=== PATIENT | female | born 1960 | race Asian ===

== ENCOUNTER 2020-03-31 13:53 | Inpatient (IN) | payer OTHER ==
[~2020-03-31] VITALS: Ht 152.4 cm; Wt 61.7 kg
[~2020-03-31 13:53] MED LIST: AMLO-258 GT; ASPI-1450 PO; ATOR40TA28 PO; CLOP75TA60 PO; DSSL GT; INSLAN SQ; INSU100V3 SQ; LEVO50 PO; LISI-893 GT; MULT-1239 GT; PROZ10 PO; SITA50 PO; TAMS-13 GT
[2020-03-31 17:00] VITALS: BP 168/66
[2020-03-31] MEDS ORDERED: DEXTROSE 50%-WATER 25 GM/50 ML SYRINGE IVP PRN (17:30)
[2020-03-31] MEDS ORDERED: ACETAMINOPHEN 325 MG TABLET PO PRN (18:15)
[2020-03-31 18:59] LABS: GLUCOMETER DEV NAME(LOC) 2WR.2B; GLUCOSE,POINT OF CARE 88 MG/DL (70-110)
[2020-03-31] MEDS ORDERED: ATORVASTATIN CALCIUM 40 MG TABLET PO SCH (21:00)
[2020-03-31] MEDS ORDERED: DOCUSATE SODIUM 100 MG/10 ML LIQUID UDCUP PO SCH (21:00)
[2020-03-31] MEDS ORDERED: DOCUSATE SODIUM 100 MG/10 ML LIQUID UDCUP GT SCH (21:00)
[2020-03-31] MEDS: DOCUSATE SODIUM 100 MG/10 ML LIQUID UDCUP GT SCH (21:01)
[2020-03-31] MEDS: LANSOPRAZOLE 30 MG SOLUBLE TABLET GT SCH (21:01)
[2020-03-31] MEDS: ATORVASTATIN CALCIUM 40 MG TABLET GT SCH (21:01)
[2020-03-31] MEDS: INSULIN GLARGINE,HUM.REC.ANLOG 100 UNITS/ML SQ SCH (21:03)
[2020-03-31] MEDS: INSULIN LISPRO 100 UNITS/ML SQ PRN (21:04)
[2020-03-31 21:53] LABS: GLUCOMETER DEV NAME(LOC) 2WR.2B; GLUCOSE,POINT OF CARE 170 MG/DL (70-110)
[2020-04-01 03:48] VITALS: BP 147/62
[2020-04-01] MEDS: LEVOTHYROXINE SODIUM 50 MCG TABLET GT SCH (05:41)
[2020-04-01 05:58] LABS: GLUCOMETER DEV NAME(LOC) 2WR.2B; GLUCOSE,POINT OF CARE 108 MG/DL (70-110)
[2020-04-01 06:56] LABS: BASOPHILS % (AUTO) 0.3 % (0.0-2.0); EOSINOPHILS % (AUTO) 6.7 % (1.0-6.0); HEMATOCRIT 27.3 % (36-46); LYMPHOCYTES # (AUTO) 1.1 K/uL (1.0-4.8); LYMPHOCYTES % (AUTO) 11.5 % (22.0-44.0); MEAN CORPUSCULAR HEMOGLOBIN 27.7 pg (26.0-34.0); MEAN CORPUSCULAR HGB CONC 32.9 G/dL (31.0-37.0); MEAN CORPUSCULAR VOLUME 84 fL (80-100); MONOCYTES # (AUTO) 0.6 K/uL (0.1-1.0); MONOCYTES % (AUTO) 6.2 % (2.0-9.0); NEUTROPHILS # (AUTO) 7.2 K/uL (1.8-7.7); NEUTROPHILS % (AUTO) 75.3 % (40.0-70.0); PLATELET COUNT (AUTO) 268 K/uL (150-450); RED BLOOD CELL COUNT(AUTO) 3.24 MIL/uL (4.00-5.20); RED CELL DISTRIBUTION WIDTH 14.9 % (11.5-14.5)
[2020-04-01] MEDS ORDERED: LEVOTHYROXINE SODIUM 50 MCG TABLET PO SCH (07:00)
[2020-04-01 07:05] LABS: BILIRUBIN,TOTAL 0.2 mg/dL (0.1-1.0); CALCIUM, TOTAL 8.8 mg/dL (8.8-10.5); CREATININE 0.97 mg/dL (0.60-1.30); POTASSIUM 3.9 mmol/L (3.5-5.1); TOTAL PROTEIN, SERUM 5.9 g/dL (6.4-8.2)
[2020-04-01 07:45] VITALS: BP 179/87
[2020-04-01] MEDS ORDERED: CHOLECALCIFEROL (VIT D3) 400 UNITS [10 MCG] TABLET PO SCH (09:00)
[2020-04-01] MEDS: DOCUSATE SODIUM 100 MG/10 ML LIQUID UDCUP GT SCH ×2 (09:00→20:12)
[2020-04-01] MEDS ORDERED: SitaGLIPtin PHOSPHATE 50 MG TABLET PO SCH (09:00)
[2020-04-01] MEDS ORDERED: CALCIUM CARBONATE 648 MG TABLET PO SCH (09:00)
[2020-04-01] MEDS ORDERED: CALCIUM OYSTER SHELL 250 MG-VIT D3 125 UNITS TABLET GT SCH (09:00)
[2020-04-01] MEDS ORDERED: FLUoxetine HCL 10 MG CAPSULE PO SCH (09:00)
[2020-04-01] MEDS ORDERED: AmLODIPine BESYLATE 2.5 MG TABLET PO SCH (09:00)
[2020-04-01] MEDS ORDERED: AmLODIPine BESYLATE 2.5 MG TABLET GT SCH (09:00)
[2020-04-01] MEDS ORDERED: CLOPIDOGREL BISULFATE 75 MG TABLET PO SCH (09:00)
[2020-04-01] MEDS ORDERED: ASPIRIN 81 MG CHEWABLE TABLET PO SCH (09:00)
[2020-04-01 10:26] VITALS: BP 162/60
[2020-04-01] MEDS: INSULIN LISPRO 100 UNITS/ML SQ PRN (10:34)
[2020-04-01] MEDS: SitaGLIPtin PHOSPHATE 50 MG TABLET GT SCH (11:18)
[2020-04-01] MEDS: CALCIUM CARBONATE 648 MG TABLET GT SCH (11:18)
[2020-04-01] MEDS: LANSOPRAZOLE 30 MG SOLUBLE TABLET GT SCH ×2 (11:19→20:12)
[2020-04-01] MEDS: CHOLECALCIFEROL (VIT D3) 400 UNITS [10 MCG] TABLET GT SCH (11:19)
[2020-04-01] MEDS: ASPIRIN 81 MG CHEWABLE TABLET GT SCH (11:19)
[2020-04-01] MEDS: FLUoxetine HCL 10 MG CAPSULE GT SCH (11:19)
[2020-04-01] MEDS: CLOPIDOGREL BISULFATE 75 MG TABLET GT SCH (11:20)
[2020-04-01 13:30] VITALS: BP 156/51
[2020-04-01 13:47] LABS: GLUCOMETER DEV NAME(LOC) 2WR.1C; GLUCOSE,POINT OF CARE 166 MG/DL (70-110)
[2020-04-01] MEDS: LOSARTAN POTASSIUM 25 MG TABLET PO SCH (13:50)
[2020-04-01 16:00] VITALS: BP 135/65
[2020-04-01 17:11] LABS: GLUCOMETER DEV NAME(LOC) 2WR.2B; GLUCOSE,POINT OF CARE 107 MG/DL (70-110)
[2020-04-01] MEDS: ATORVASTATIN CALCIUM 40 MG TABLET GT SCH (20:13)
[2020-04-01] MEDS: INSULIN GLARGINE,HUM.REC.ANLOG 100 UNITS/ML SQ SCH (20:19)
[2020-04-01 21:30] LABS: GLUCOMETER DEV NAME(LOC) 2WR.2B; GLUCOSE,POINT OF CARE 130 MG/DL (70-110)
[2020-04-02] VITALS: BP 143/60
[2020-04-02] MEDS: LEVOTHYROXINE SODIUM 50 MCG TABLET GT SCH (05:15)
[2020-04-02] MEDS: ACETAMINOPHEN 325 MG TABLET GT PRN ×2 (05:22→22:30)
[2020-04-02 05:38] LABS: GLUCOMETER DEV NAME(LOC) 2WR.2B; GLUCOSE,POINT OF CARE 102 MG/DL (70-110)
[2020-04-02 06:58] LABS: CALCIUM, TOTAL 8.7 mg/dL (8.8-10.5); CREATININE 0.97 mg/dL (0.60-1.30); POTASSIUM 3.6 mmol/L (3.5-5.1)
[2020-04-02 08:09] VITALS: BP 147/63
[2020-04-02] MEDS: SitaGLIPtin PHOSPHATE 50 MG TABLET GT SCH (08:20)
[2020-04-02] MEDS: CLOPIDOGREL BISULFATE 75 MG TABLET GT SCH (08:20)
[2020-04-02] MEDS: ASPIRIN 81 MG CHEWABLE TABLET GT SCH (08:20)
[2020-04-02] MEDS: CHOLECALCIFEROL (VIT D3) 400 UNITS [10 MCG] TABLET GT SCH (08:20)
[2020-04-02] MEDS: LANSOPRAZOLE 30 MG SOLUBLE TABLET GT SCH ×2 (08:21→20:04)
[2020-04-02] MEDS: FLUoxetine HCL 10 MG CAPSULE GT SCH (08:21)
[2020-04-02] MEDS: AmLODIPine BESYLATE 5 MG TABLET GT SCH (08:28)
[2020-04-02] MEDS: LOSARTAN POTASSIUM 25 MG TABLET PO SCH (08:28)
[2020-04-02] MEDS: DOCUSATE SODIUM 100 MG/10 ML LIQUID UDCUP GT SCH ×2 (08:31→20:04)
[2020-04-02] MEDS: CALCIUM CARBONATE 648 MG TABLET GT SCH (09:34)
[2020-04-02] MEDS: INSULIN LISPRO 100 UNITS/ML SQ PRN (12:28)
[2020-04-02 15:15] LABS: GLUCOMETER DEV NAME(LOC) 2WR.1C; GLUCOSE,POINT OF CARE 148 MG/DL (70-110)
[2020-04-02 17:13] VITALS: BP 168/69
[2020-04-02 17:27] LABS: GLUCOMETER DEV NAME(LOC) 2WR.2B; GLUCOSE,POINT OF CARE 111 MG/DL (70-110)
[2020-04-02] MEDS: ATORVASTATIN CALCIUM 40 MG TABLET GT SCH (20:04)
[2020-04-02] MEDS: INSULIN GLARGINE,HUM.REC.ANLOG 100 UNITS/ML SQ SCH (20:12)
[2020-04-02 21:41] LABS: GLUCOMETER DEV NAME(LOC) 2WR.2B; GLUCOSE,POINT OF CARE 144 MG/DL (70-110)
[2020-04-03] VITALS: BP 153/56
[2020-04-03] MEDS: BISACODYL 10 MG RECTAL RECTAL SUPPOSITORY PR SCH (05:36)
[2020-04-03 05:52] LABS: GLUCOMETER DEV NAME(LOC) 2WR.2B; GLUCOSE,POINT OF CARE 101 MG/DL (70-110)
[2020-04-03] MEDS: LEVOTHYROXINE SODIUM 50 MCG TABLET GT SCH (06:14)
[2020-04-03] MEDS: FLUoxetine HCL 10 MG CAPSULE GT SCH (07:22)
[2020-04-03] MEDS: CLOPIDOGREL BISULFATE 75 MG TABLET GT SCH (07:22)
[2020-04-03] MEDS: LANSOPRAZOLE 30 MG SOLUBLE TABLET GT SCH ×2 (07:22→20:14)
[2020-04-03] MEDS: AmLODIPine BESYLATE 5 MG TABLET GT SCH (07:22)
[2020-04-03] MEDS: CHOLECALCIFEROL (VIT D3) 400 UNITS [10 MCG] TABLET GT SCH (07:22)
[2020-04-03] MEDS: ASPIRIN 81 MG CHEWABLE TABLET GT SCH (07:22)
[2020-04-03] MEDS: SitaGLIPtin PHOSPHATE 50 MG TABLET GT SCH (07:22)
[2020-04-03] MEDS: DOCUSATE SODIUM 100 MG/10 ML LIQUID UDCUP GT SCH (07:22)
[2020-04-03] MEDS: LOSARTAN POTASSIUM 25 MG TABLET PO SCH (07:22)
[2020-04-03] MEDS: CALCIUM CARBONATE 648 MG TABLET GT SCH (09:00)
[2020-04-03] MEDS ORDERED: BISACODYL 10 MG RECTAL RECTAL SUPPOSITORY PR SCH (09:00)
[2020-04-03] MEDS ORDERED: DOCUSATE SODIUM 100 MG/10 ML LIQUID UDCUP GT PRN (09:15)
[2020-04-03 09:22] VITALS: BP 141/51
[2020-04-03 13:23] LABS: GLUCOMETER DEV NAME(LOC) 2WR.2B; GLUCOSE,POINT OF CARE 129 MG/DL (70-110)
[2020-04-03 16:15] VITALS: BP 160/97
[2020-04-03 18:02] LABS: GLUCOMETER DEV NAME(LOC) 2WR.1C; GLUCOSE,POINT OF CARE 138 MG/DL (70-110)
[2020-04-03] MEDS: ATORVASTATIN CALCIUM 40 MG TABLET GT SCH (20:13)
[2020-04-03] MEDS: INSULIN GLARGINE,HUM.REC.ANLOG 100 UNITS/ML SQ SCH (20:35)
[2020-04-03] MEDS: INSULIN LISPRO 100 UNITS/ML SQ PRN (20:36)
[2020-04-03 20:47] LABS: GLUCOMETER DEV NAME(LOC) 2WR.1C; GLUCOSE,POINT OF CARE 178 MG/DL (70-110)
[2020-04-03] MEDS: MELATONIN 5 MG TABLET PO PRN (21:36)
[2020-04-04 00:13] VITALS: BP 128/74
[2020-04-04] MEDS: BISACODYL 10 MG RECTAL RECTAL SUPPOSITORY PR SCH (05:46)
[2020-04-04] MEDS: LEVOTHYROXINE SODIUM 50 MCG TABLET GT SCH (05:47)
[2020-04-04 05:54] LABS: GLUCOMETER DEV NAME(LOC) 2WR.1C; GLUCOSE,POINT OF CARE 100 MG/DL (70-110)
[2020-04-04 06:57] LABS: BASOPHILS % (AUTO) 0.3 % (0.0-2.0); EOSINOPHILS % (AUTO) 6.2 % (1.0-6.0); HEMATOCRIT 30.2 % (36-46); HEMOGLOBIN 9.8 g/dL (12.0-16.0); LYMPHOCYTES # (AUTO) 1.3 K/uL (1.0-4.8); LYMPHOCYTES % (AUTO) 11.2 % (22.0-44.0); MEAN CORPUSCULAR HEMOGLOBIN 27.2 pg (26.0-34.0); MEAN CORPUSCULAR HGB CONC 32.6 G/dL (31.0-37.0); MEAN CORPUSCULAR VOLUME 84 fL (80-100); MONOCYTES # (AUTO) 0.7 K/uL (0.1-1.0); MONOCYTES % (AUTO) 6.4 % (2.0-9.0); NEUTROPHILS # (AUTO) 8.5 K/uL (1.8-7.7); NEUTROPHILS % (AUTO) 75.9 % (40.0-70.0); PLATELET COUNT (AUTO) 303 K/uL (150-450); RED BLOOD CELL COUNT(AUTO) 3.61 MIL/uL (4.00-5.20); RED CELL DISTRIBUTION WIDTH 15.1 % (11.5-14.5)
[2020-04-04 07:10] LABS: ANION GAP 10 mmol/L (8-16); CALCIUM, TOTAL 9.7 mg/dL (8.8-10.5); CARBON DIOXIDE 26 mmol/L (22-29); CHLORIDE 107 mmol/L (98-107); CREATININE 0.86 mg/dL (0.60-1.30); GLOMERULAR FILTR. RATE CALC > 60 mL/min (>60); GLUCOSE,RANDOM 108 mg/dL (70-110); POTASSIUM 4.1 mmol/L (3.5-5.1); SODIUM SERUM 143 mmol/L (136-145); UREA NITROGEN, BLOOD 28 mg/dL (7-18)
[2020-04-04 08:00] VITALS: BP 166/64
[2020-04-04] MEDS: ASPIRIN 81 MG CHEWABLE TABLET GT SCH (08:03)
[2020-04-04] MEDS: SitaGLIPtin PHOSPHATE 50 MG TABLET GT SCH (08:04)
[2020-04-04] MEDS: CALCIUM CARBONATE 648 MG TABLET GT SCH (08:04)
[2020-04-04] MEDS: FLUoxetine HCL 10 MG CAPSULE GT SCH (08:04)
[2020-04-04] MEDS: CHOLECALCIFEROL (VIT D3) 400 UNITS [10 MCG] TABLET GT SCH (08:04)
[2020-04-04] MEDS: LOSARTAN POTASSIUM 25 MG TABLET PO SCH (08:04)
[2020-04-04] MEDS: CLOPIDOGREL BISULFATE 75 MG TABLET GT SCH (08:04)
[2020-04-04] MEDS: AmLODIPine BESYLATE 5 MG TABLET GT SCH (08:04)
[2020-04-04] MEDS: LANSOPRAZOLE 30 MG SOLUBLE TABLET GT SCH ×2 (08:04→21:36)
[2020-04-04] MEDS: INSULIN LISPRO 100 UNITS/ML SQ PRN ×2 (08:05→11:42)
[2020-04-04 17:00] VITALS: BP 126/70
[2020-04-04 17:23] LABS: GLUCOMETER DEV NAME(LOC) 2WR.1C; GLUCOSE,POINT OF CARE 137 MG/DL (70-110)
[2020-04-04] MEDS: ATORVASTATIN CALCIUM 40 MG TABLET GT SCH (21:35)
[2020-04-04] MEDS: MELATONIN 5 MG TABLET PO PRN (21:42)
[2020-04-04 21:44] LABS: GLUCOMETER DEV NAME(LOC) 2WR.2B; GLUCOSE,POINT OF CARE 81 MG/DL (70-110)
[2020-04-04] MEDS: INSULIN GLARGINE,HUM.REC.ANLOG 100 UNITS/ML SQ SCH (22:07)
[2020-04-04 22:28] LABS: GLUCOMETER DEV NAME(LOC) 2WR.2B; GLUCOSE,POINT OF CARE 127 MG/DL (70-110)
[2020-04-05] VITALS: BP 142/51
[2020-04-05] MEDS: BISACODYL 10 MG RECTAL RECTAL SUPPOSITORY PR SCH (05:50)
[2020-04-05] MEDS: LEVOTHYROXINE SODIUM 50 MCG TABLET GT SCH (05:51)
[2020-04-05 06:09] LABS: GLUCOMETER DEV NAME(LOC) 2WR.2B; GLUCOSE,POINT OF CARE 102 MG/DL (70-110)
[2020-04-05 08:00] VITALS: BP 153/71
[2020-04-05] MEDS: INSULIN LISPRO 100 UNITS/ML SQ PRN ×2 (09:17→11:27)
[2020-04-05] MEDS: SitaGLIPtin PHOSPHATE 50 MG TABLET GT SCH (09:19)
[2020-04-05] MEDS: CALCIUM CARBONATE 648 MG TABLET GT SCH (09:19)
[2020-04-05] MEDS: ASPIRIN 81 MG CHEWABLE TABLET GT SCH (09:19)
[2020-04-05] MEDS: AmLODIPine BESYLATE 5 MG TABLET GT SCH (09:20)
[2020-04-05] MEDS: CLOPIDOGREL BISULFATE 75 MG TABLET GT SCH (09:20)
[2020-04-05] MEDS: CHOLECALCIFEROL (VIT D3) 400 UNITS [10 MCG] TABLET GT SCH (09:20)
[2020-04-05] MEDS: LANSOPRAZOLE 30 MG SOLUBLE TABLET GT SCH ×2 (09:20→20:41)
[2020-04-05] MEDS: FLUoxetine HCL 10 MG CAPSULE GT SCH (09:20)
[2020-04-05] MEDS: LOSARTAN POTASSIUM 25 MG TABLET PO SCH (09:21)
[2020-04-05] MEDS: ENOXAPARIN SODIUM 40 MG/0.4 ML PF SYRINGE SQ SCH (11:30)
[2020-04-05 12:38] LABS: GLUCOMETER DEV NAME(LOC) 2WR.2B; GLUCOSE,POINT OF CARE 147 MG/DL (70-110)
[2020-04-05 16:00] VITALS: BP 146/52
[2020-04-05 18:40] LABS: GLUCOMETER DEV NAME(LOC) 2WR.2B; GLUCOSE,POINT OF CARE 83 MG/DL (70-110)
[2020-04-05] MEDS: DOCUSATE SODIUM 283 MG/5 ML MINI-ENEMA PR SCH (20:41)
[2020-04-05] MEDS: ATORVASTATIN CALCIUM 40 MG TABLET GT SCH (20:41)
[2020-04-05] MEDS: MELATONIN 5 MG TABLET PO PRN (20:42)
[2020-04-05] MEDS: INSULIN GLARGINE,HUM.REC.ANLOG 100 UNITS/ML SQ SCH (20:43)
[2020-04-05 22:56] LABS: GLUCOMETER DEV NAME(LOC) 2WR.1C; GLUCOSE,POINT OF CARE 127 MG/DL (70-110)
[2020-04-06 05:00] VITALS: BP 130/57
[2020-04-06] MEDS: LEVOTHYROXINE SODIUM 50 MCG TABLET GT SCH (05:34)
[2020-04-06 06:31] LABS: GLUCOMETER DEV NAME(LOC) 2WR.2B; GLUCOSE,POINT OF CARE 87 MG/DL (70-110)
[2020-04-06 08:00] VITALS: BP 160/62
[2020-04-06] MEDS: AmLODIPine BESYLATE 5 MG TABLET GT SCH (08:24)
[2020-04-06] MEDS: SitaGLIPtin PHOSPHATE 50 MG TABLET GT SCH (08:24)
[2020-04-06] MEDS: ASPIRIN 81 MG CHEWABLE TABLET GT SCH (08:24)
[2020-04-06] MEDS: CALCIUM CARBONATE 648 MG TABLET GT SCH (08:24)
[2020-04-06] MEDS: CLOPIDOGREL BISULFATE 75 MG TABLET GT SCH (08:24)
[2020-04-06] MEDS: FLUoxetine HCL 10 MG CAPSULE GT SCH (08:24)
[2020-04-06] MEDS: LANSOPRAZOLE 30 MG SOLUBLE TABLET GT SCH ×2 (08:24→21:23)
[2020-04-06] MEDS: CHOLECALCIFEROL (VIT D3) 400 UNITS [10 MCG] TABLET GT SCH (08:25)
[2020-04-06] MEDS: LOSARTAN POTASSIUM 25 MG TABLET PO SCH ×2 (08:25→21:00)
[2020-04-06] MEDS: ENOXAPARIN SODIUM 40 MG/0.4 ML PF SYRINGE SQ SCH (08:25)
[2020-04-06 09:00] VITALS: BP 147/48
[2020-04-06] MEDS: INSULIN LISPRO 100 UNITS/ML SQ PRN ×2 (12:06→21:40)
[2020-04-06 14:32] LABS: GLUCOMETER DEV NAME(LOC) 2WR.2B; GLUCOSE,POINT OF CARE 112 MG/DL (70-110)
[2020-04-06 16:00] VITALS: BP 119/55
[2020-04-06] MEDS: DOCUSATE SODIUM 283 MG/5 ML MINI-ENEMA PR SCH (19:19)
[2020-04-06 19:25] LABS: GLUCOMETER DEV NAME(LOC) 2WR.1C; GLUCOSE,POINT OF CARE 89 MG/DL (70-110)
[2020-04-06] MEDS: ATORVASTATIN CALCIUM 40 MG TABLET GT SCH (21:23)
[2020-04-06] MEDS: MELATONIN 5 MG TABLET PO PRN (21:23)
[2020-04-06 21:32] VITALS: BP 126/48
[2020-04-06] MEDS: INSULIN GLARGINE,HUM.REC.ANLOG 100 UNITS/ML SQ SCH (21:40)
[2020-04-06 22:46] LABS: GLUCOMETER DEV NAME(LOC) 2WR.1C; GLUCOSE,POINT OF CARE 177 MG/DL (70-110)
[2020-04-07] MEDS: LEVOTHYROXINE SODIUM 50 MCG TABLET GT SCH (06:00)
[2020-04-07 06:19] LABS: GLUCOMETER DEV NAME(LOC) 2WR.2B; GLUCOSE,POINT OF CARE 96 MG/DL (70-110)
[2020-04-07 07:06] LABS: BASOPHILS % (AUTO) 0.3 % (0.0-2.0); EOSINOPHILS % (AUTO) 5.5 % (1.0-6.0); HEMATOCRIT 26.6 % (36-46); HEMOGLOBIN 8.9 g/dL (12.0-16.0); LYMPHOCYTES # (AUTO) 1.4 K/uL (1.0-4.8); LYMPHOCYTES % (AUTO) 15.7 % (22.0-44.0); MEAN CORPUSCULAR HGB CONC 33.4 G/dL (31.0-37.0); MEAN CORPUSCULAR VOLUME 84 fL (80-100); MONOCYTES # (AUTO) 0.9 K/uL (0.1-1.0); MONOCYTES % (AUTO) 9.8 % (2.0-9.0); NEUTROPHILS # (AUTO) 6.3 K/uL (1.8-7.7); NEUTROPHILS % (AUTO) 68.7 % (40.0-70.0); PLATELET COUNT (AUTO) 283 K/uL (150-450); RED BLOOD CELL COUNT(AUTO) 3.17 MIL/uL (4.00-5.20)
[2020-04-07 08:10] VITALS: BP 156/78
[2020-04-07] MEDS: AmLODIPine BESYLATE 5 MG TABLET GT SCH (08:12)
[2020-04-07] MEDS: SitaGLIPtin PHOSPHATE 50 MG TABLET GT SCH (08:12)
[2020-04-07] MEDS: CLOPIDOGREL BISULFATE 75 MG TABLET GT SCH (08:12)
[2020-04-07] MEDS: ASPIRIN 81 MG CHEWABLE TABLET GT SCH (08:12)
[2020-04-07] MEDS: CHOLECALCIFEROL (VIT D3) 400 UNITS [10 MCG] TABLET GT SCH (08:13)
[2020-04-07] MEDS: CALCIUM CARBONATE 648 MG TABLET GT SCH (08:13)
[2020-04-07] MEDS: LOSARTAN POTASSIUM 25 MG TABLET PO SCH ×2 (08:13→21:14)
[2020-04-07] MEDS: FLUoxetine HCL 10 MG CAPSULE GT SCH (08:13)
[2020-04-07] MEDS: ENOXAPARIN SODIUM 40 MG/0.4 ML PF SYRINGE SQ SCH (08:13)
[2020-04-07] MEDS: LANSOPRAZOLE 30 MG SOLUBLE TABLET GT SCH ×2 (08:13→21:06)
[2020-04-07] MEDS: MAGNESIUM OXIDE 400 MG TABLET PO SCH (13:59)
[2020-04-07 14:15] LABS: GLUCOMETER DEV NAME(LOC) 2WR.1C; GLUCOSE,POINT OF CARE 127 MG/DL (70-110)
[2020-04-07 16:53] VITALS: BP 134/44
[2020-04-07] MEDS: DOCUSATE SODIUM 283 MG/5 ML MINI-ENEMA PR SCH (17:09)
[2020-04-07] MEDS: INSULIN LISPRO 100 UNITS/ML SQ PRN (17:29)
[2020-04-07 18:00] LABS: GLUCOMETER DEV NAME(LOC) 2WR.1C; GLUCOSE,POINT OF CARE 156 MG/DL (70-110)
[2020-04-07 18:03] VITALS: BP 116/62
[2020-04-07] MEDS: INSULIN GLARGINE,HUM.REC.ANLOG 100 UNITS/ML SQ SCH (21:02)
[2020-04-07] MEDS: ATORVASTATIN CALCIUM 40 MG TABLET GT SCH (21:06)
[2020-04-07] MEDS: MELATONIN 5 MG TABLET PO PRN (21:06)
[2020-04-07 21:11] VITALS: BP 125/54
[2020-04-08] MEDS: LEVOTHYROXINE SODIUM 50 MCG TABLET GT SCH (06:26)
[2020-04-08 06:33] LABS: GLUCOMETER DEV NAME(LOC) 2WR.1C; GLUCOSE,POINT OF CARE 140 MG/DL (70-110)
[2020-04-08 07:06] LABS: GLUCOMETER DEV NAME(LOC) 2WR.1C; GLUCOSE,POINT OF CARE 96 MG/DL (70-110)
[2020-04-08 08:05] VITALS: BP 167/68
[2020-04-08] MEDS: SitaGLIPtin PHOSPHATE 50 MG TABLET GT SCH (09:10)
[2020-04-08] MEDS: FLUoxetine HCL 10 MG CAPSULE GT SCH (09:10)
[2020-04-08] MEDS: LANSOPRAZOLE 30 MG SOLUBLE TABLET GT SCH ×2 (09:10→20:16)
[2020-04-08] MEDS: CLOPIDOGREL BISULFATE 75 MG TABLET GT SCH (09:10)
[2020-04-08] MEDS: AmLODIPine BESYLATE 5 MG TABLET GT SCH (09:10)
[2020-04-08] MEDS: ASPIRIN 81 MG CHEWABLE TABLET GT SCH (09:10)
[2020-04-08] MEDS: CALCIUM CARBONATE 648 MG TABLET GT SCH (09:10)
[2020-04-08] MEDS: ENOXAPARIN SODIUM 40 MG/0.4 ML PF SYRINGE SQ SCH (09:11)
[2020-04-08] MEDS: LOSARTAN POTASSIUM 25 MG TABLET PO SCH ×2 (09:11→20:16)
[2020-04-08] MEDS: CHOLECALCIFEROL (VIT D3) 400 UNITS [10 MCG] TABLET GT SCH (09:11)
[2020-04-08] MEDS: MAGNESIUM OXIDE 400 MG TABLET PO SCH ×2 (09:11→20:16)
[2020-04-08 10:05] VITALS: BP 143/58
[2020-04-08] MEDS: INSULIN LISPRO 100 UNITS/ML SQ PRN ×3 (10:09→20:49)
[2020-04-08 17:00] VITALS: BP 149/60
[2020-04-08 17:06] LABS: GLUCOMETER DEV NAME(LOC) 2WR.1C; GLUCOSE,POINT OF CARE 165 MG/DL (70-110)
[2020-04-08 17:37] LABS: GLUCOMETER DEV NAME(LOC) 2WR.1C; GLUCOSE,POINT OF CARE 105 MG/DL (70-110)
[2020-04-08] MEDS: DOCUSATE SODIUM 283 MG/5 ML MINI-ENEMA PR SCH (20:10)
[2020-04-08] MEDS: ATORVASTATIN CALCIUM 40 MG TABLET GT SCH (20:17)
[2020-04-08] MEDS: INSULIN GLARGINE,HUM.REC.ANLOG 100 UNITS/ML SQ SCH (20:50)
[2020-04-08] MEDS: MELATONIN 5 MG TABLET PO PRN (23:59)
[2020-04-09] VITALS: BP 129/88
[2020-04-09 05:54] LABS: GLUCOMETER DEV NAME(LOC) 2WR.1C; GLUCOSE,POINT OF CARE 197 MG/DL (70-110)
[2020-04-09 05:54] LABS: GLUCOMETER DEV NAME(LOC) 2WR.1C; GLUCOSE,POINT OF CARE 122 MG/DL (70-110)
[2020-04-09] MEDS: LEVOTHYROXINE SODIUM 50 MCG TABLET GT SCH (06:09)
[2020-04-09 06:50] LABS: BASOPHILS % (AUTO) 0.4 % (0.0-2.0); EOSINOPHILS % (AUTO) 4.4 % (1.0-6.0); HEMATOCRIT 27.5 % (36-46); HEMOGLOBIN 9.3 g/dL (12.0-16.0); LYMPHOCYTES # (AUTO) 1.5 K/uL (1.0-4.8); LYMPHOCYTES % (AUTO) 13.7 % (22.0-44.0); MEAN CORPUSCULAR HEMOGLOBIN 28.3 pg (26.0-34.0); MEAN CORPUSCULAR HGB CONC 33.7 G/dL (31.0-37.0); MEAN CORPUSCULAR VOLUME 84 fL (80-100); MONOCYTES # (AUTO) 1.2 K/uL (0.1-1.0); MONOCYTES % (AUTO) 10.5 % (2.0-9.0); NEUTROPHILS # (AUTO) 7.8 K/uL (1.8-7.7); PLATELET COUNT (AUTO) 286 K/uL (150-450); RED BLOOD CELL COUNT(AUTO) 3.27 MIL/uL (4.00-5.20)
[2020-04-09 07:22] LABS: CALCIUM, TOTAL 8.9 mg/dL (8.8-10.5); CREATININE 0.99 mg/dL (0.60-1.30); POTASSIUM 4.4 mmol/L (3.5-5.1)
[2020-04-09] MEDS: LANSOPRAZOLE 30 MG SOLUBLE TABLET GT SCH ×2 (07:59→21:01)
[2020-04-09] MEDS: ASPIRIN 81 MG CHEWABLE TABLET GT SCH (07:59)
[2020-04-09] MEDS: CALCIUM CARBONATE 648 MG TABLET GT SCH (07:59)
[2020-04-09] MEDS: CHOLECALCIFEROL (VIT D3) 400 UNITS [10 MCG] TABLET GT SCH (07:59)
[2020-04-09] MEDS: CLOPIDOGREL BISULFATE 75 MG TABLET GT SCH (07:59)
[2020-04-09] MEDS: AmLODIPine BESYLATE 5 MG TABLET GT SCH (07:59)
[2020-04-09] MEDS: LOSARTAN POTASSIUM 25 MG TABLET PO SCH ×2 (07:59→21:01)
[2020-04-09] MEDS: SitaGLIPtin PHOSPHATE 50 MG TABLET GT SCH (07:59)
[2020-04-09] MEDS: MAGNESIUM OXIDE 400 MG TABLET PO SCH ×2 (07:59→21:02)
[2020-04-09] MEDS: FLUoxetine HCL 10 MG CAPSULE GT SCH (07:59)
[2020-04-09 08:00] VITALS: BP 159/66
[2020-04-09] MEDS: ENOXAPARIN SODIUM 40 MG/0.4 ML PF SYRINGE SQ SCH (08:00)
[2020-04-09] MEDS: INSULIN LISPRO 100 UNITS/ML SQ PRN ×4 (08:05→20:58)
[2020-04-09 09:30] VITALS: BP 145/60
[2020-04-09 12:27] LABS: GLUCOMETER DEV NAME(LOC) 2WR.2B; GLUCOSE,POINT OF CARE 114 MG/DL (70-110)
[2020-04-09 16:00] VITALS: BP 122/45
[2020-04-09 19:07] LABS: GLUCOMETER DEV NAME(LOC) 2WR.2B; GLUCOSE,POINT OF CARE 155 MG/DL (70-110)
[2020-04-09] MEDS: INSULIN GLARGINE,HUM.REC.ANLOG 100 UNITS/ML SQ SCH (20:59)
[2020-04-09 21:00] VITALS: BP 155/58
[2020-04-09] MEDS: MELATONIN 5 MG TABLET PO PRN (21:01)
[2020-04-09] MEDS: ATORVASTATIN CALCIUM 40 MG TABLET GT SCH (21:01)
[2020-04-09 21:14] LABS: GLUCOMETER DEV NAME(LOC) 2WR.1C; GLUCOSE,POINT OF CARE 159 MG/DL (70-110)
[2020-04-10 01:07] VITALS: BP 139/71
[2020-04-10] MEDS: LEVOTHYROXINE SODIUM 50 MCG TABLET GT SCH (05:55)
[2020-04-10 06:26] LABS: GLUCOMETER DEV NAME(LOC) 2WR.2B; GLUCOSE,POINT OF CARE 110 MG/DL (70-110)
[2020-04-10 08:00] VITALS: BP 148/67
[2020-04-10] MEDS: ASPIRIN 81 MG CHEWABLE TABLET GT SCH (09:18)
[2020-04-10] MEDS: LOSARTAN POTASSIUM 25 MG TABLET PO SCH ×2 (09:19→20:36)
[2020-04-10] MEDS: LANSOPRAZOLE 30 MG SOLUBLE TABLET GT SCH ×2 (09:19→20:36)
[2020-04-10] MEDS: SitaGLIPtin PHOSPHATE 50 MG TABLET GT SCH (09:19)
[2020-04-10] MEDS: FLUoxetine HCL 10 MG CAPSULE GT SCH (09:19)
[2020-04-10] MEDS: MAGNESIUM OXIDE 400 MG TABLET PO SCH ×2 (09:19→20:36)
[2020-04-10] MEDS: CHOLECALCIFEROL (VIT D3) 400 UNITS [10 MCG] TABLET GT SCH (09:19)
[2020-04-10] MEDS: CLOPIDOGREL BISULFATE 75 MG TABLET GT SCH (09:19)
[2020-04-10] MEDS: AmLODIPine BESYLATE 5 MG TABLET GT SCH (09:19)
[2020-04-10] MEDS: CALCIUM CARBONATE 648 MG TABLET GT SCH (09:19)
[2020-04-10] MEDS: INSULIN LISPRO 100 UNITS/ML SQ PRN ×3 (09:20→20:39)
[2020-04-10] MEDS: ENOXAPARIN SODIUM 40 MG/0.4 ML PF SYRINGE SQ SCH (09:20)
[2020-04-10 14:48] LABS: GLUCOMETER DEV NAME(LOC) 2WR.2B; GLUCOSE,POINT OF CARE 160 MG/DL (70-110)
[2020-04-10 18:09] VITALS: BP 130/58
[2020-04-10 18:37] LABS: GLUCOMETER DEV NAME(LOC) 2WR.1C; GLUCOSE,POINT OF CARE 123 MG/DL (70-110)
[2020-04-10] MEDS: ATORVASTATIN CALCIUM 40 MG TABLET GT SCH (20:36)
[2020-04-10] MEDS: INSULIN GLARGINE,HUM.REC.ANLOG 100 UNITS/ML SQ SCH (20:40)
[2020-04-10] MEDS: MELATONIN 5 MG TABLET PO PRN (22:11)
[2020-04-10 23:49] VITALS: BP 150/74
[2020-04-11 05:25] LABS: GLUCOMETER DEV NAME(LOC) 2WR.1C; GLUCOSE,POINT OF CARE 179 MG/DL (70-110)
[2020-04-11] MEDS: LEVOTHYROXINE SODIUM 50 MCG TABLET GT SCH (05:52)
[2020-04-11 06:40] LABS: GLUCOMETER DEV NAME(LOC) 2WR.1C; GLUCOSE,POINT OF CARE 113 MG/DL (70-110)
[2020-04-11 08:00] VITALS: BP 128/57
[2020-04-11] MEDS: INSULIN LISPRO 100 UNITS/ML SQ PRN ×2 (09:33→12:49)
[2020-04-11] MEDS: ASPIRIN 81 MG CHEWABLE TABLET GT SCH (09:56)
[2020-04-11] MEDS: SitaGLIPtin PHOSPHATE 50 MG TABLET GT SCH (09:56)
[2020-04-11] MEDS: AmLODIPine BESYLATE 5 MG TABLET GT SCH (09:56)
[2020-04-11] MEDS: CALCIUM CARBONATE 648 MG TABLET GT SCH (09:56)
[2020-04-11] MEDS: LANSOPRAZOLE 30 MG SOLUBLE TABLET GT SCH ×2 (09:57→20:56)
[2020-04-11] MEDS: MAGNESIUM OXIDE 400 MG TABLET PO SCH ×2 (09:57→20:56)
[2020-04-11] MEDS: CLOPIDOGREL BISULFATE 75 MG TABLET GT SCH (09:57)
[2020-04-11] MEDS: LOSARTAN POTASSIUM 25 MG TABLET PO SCH ×2 (09:57→20:56)
[2020-04-11] MEDS: CHOLECALCIFEROL (VIT D3) 400 UNITS [10 MCG] TABLET GT SCH (09:57)
[2020-04-11] MEDS: FLUoxetine HCL 10 MG CAPSULE GT SCH (09:57)
[2020-04-11] MEDS: ENOXAPARIN SODIUM 40 MG/0.4 ML PF SYRINGE SQ SCH (10:01)
[2020-04-11 13:53] LABS: GLUCOMETER DEV NAME(LOC) 2WR.2B; GLUCOSE,POINT OF CARE 113 MG/DL (70-110)
[2020-04-11 17:30] VITALS: BP 133/61
[2020-04-11 17:50] LABS: GLUCOMETER DEV NAME(LOC) 2WR.1C; GLUCOSE,POINT OF CARE 112 MG/DL (70-110)
[2020-04-11 18:30] VITALS: BP 137/80
[2020-04-11] MEDS: ATORVASTATIN CALCIUM 40 MG TABLET GT SCH (20:56)
[2020-04-11] MEDS: INSULIN GLARGINE,HUM.REC.ANLOG 100 UNITS/ML SQ SCH (20:58)
[2020-04-11 21:00] LABS: GLUCOMETER DEV NAME(LOC) 2WR.1C; GLUCOSE,POINT OF CARE 131 MG/DL (70-110)
[2020-04-11] MEDS: MELATONIN 5 MG TABLET PO PRN (22:02)
[2020-04-11] MEDS ORDERED: DEXTROSE 5%-0.45% SODIUM CHL 1,000 ML IV PRN (23:55)
[2020-04-12 00:27] VITALS: BP 157/71
[2020-04-12 06:09] LABS: GLUCOMETER DEV NAME(LOC) 2WR.2B; GLUCOSE,POINT OF CARE 101 MG/DL (70-110)
[2020-04-12] MEDS: LEVOTHYROXINE SODIUM 50 MCG TABLET GT SCH (06:34)
[2020-04-12 08:00] VITALS: BP 158/63
[2020-04-12 09:17] LABS: COVID AG,FIA SOURCE NASOPHARYNGEAL
[2020-04-12] MEDS: MAGNESIUM OXIDE 400 MG TABLET PO SCH ×2 (09:57→21:01)
[2020-04-12] MEDS: LOSARTAN POTASSIUM 25 MG TABLET PO SCH (09:57)
[2020-04-12] MEDS ORDERED: SODIUM CHLORIDE 0.9% 1,000 ML ONE (12:08)
[2020-04-12 12:37] LABS: GLUCOMETER DEV NAME(LOC) 2WR.2B; GLUCOSE,POINT OF CARE 110 MG/DL (70-110)
[2020-04-12] MEDS ORDERED: MIDAZOLAM HCL 2 MG/2 ML VIAL ONE (12:51)
[2020-04-12] MEDS ORDERED: FentaNYL CITRATE PF 100 MCG/2 ML VIAL ONE (12:51)
[2020-04-12] MEDS ORDERED: MIDAZOLAM HCL 5 MG/ML VIAL ONE (12:55)
[2020-04-12] MEDS ORDERED: SitaGLIPtin PHOSPHATE 50 MG TABLET GT SCH (15:37)
[2020-04-12] MEDS ORDERED: SitaGLIPtin PHOSPHATE 50 MG TABLET PO SCH (15:38)
[2020-04-12] MEDS ORDERED: ACETAMINOPHEN 325 MG TABLET PO PRN (15:45)
[2020-04-12 16:00] VITALS: BP 150/52
[2020-04-12] MEDS: CHOLECALCIFEROL (VIT D3) 400 UNITS [10 MCG] TABLET PO SCH (16:03)
[2020-04-12] MEDS: ENOXAPARIN SODIUM 40 MG/0.4 ML PF SYRINGE SQ SCH (16:03)
[2020-04-12] MEDS: ASPIRIN 81 MG CHEWABLE TABLET PO SCH (16:04)
[2020-04-12] MEDS: SitaGLIPtin PHOSPHATE 50 MG TABLET PO SCH (16:04)
[2020-04-12] MEDS: CALCIUM CARBONATE 648 MG TABLET PO SCH (16:04)
[2020-04-12] MEDS: FLUoxetine HCL 10 MG CAPSULE PO SCH (16:05)
[2020-04-12] MEDS: PANTOPRAZOLE SODIUM 40 MG DR TABLET PO SCH ×2 (16:07→21:01)
[2020-04-12] MEDS: CLOPIDOGREL BISULFATE 75 MG TABLET PO SCH (16:15)
[2020-04-12] MEDS: INSULIN LISPRO 100 UNITS/ML SQ PRN (17:46)
[2020-04-12 18:03] LABS: GLUCOMETER DEV NAME(LOC) 2WR.2B; GLUCOSE,POINT OF CARE 274 MG/DL (70-110)
[2020-04-12] MEDS: DOCUSATE SODIUM 283 MG/5 ML MINI-ENEMA PR SCH (18:22)
[2020-04-12 21:00] VITALS: BP 135/56
[2020-04-12] MEDS: LOSARTAN POTASSIUM 50 MG TABLET PO SCH (21:01)
[2020-04-12] MEDS: INSULIN GLARGINE,HUM.REC.ANLOG 100 UNITS/ML SQ SCH (21:01)
[2020-04-12] MEDS: ATORVASTATIN CALCIUM 40 MG TABLET PO SCH (21:01)
[2020-04-12 21:35] LABS: GLUCOMETER DEV NAME(LOC) 2WR.1C; GLUCOSE,POINT OF CARE 118 MG/DL (70-110)
[2020-04-12] MEDS: MELATONIN 5 MG TABLET PO PRN (23:22)
[2020-04-13 05:43] LABS: GLUCOMETER DEV NAME(LOC) 2WR.2B; GLUCOSE,POINT OF CARE 110 MG/DL (70-110)
[2020-04-13] MEDS: LEVOTHYROXINE SODIUM 50 MCG TABLET PO SCH (05:58)
[2020-04-13 08:00] VITALS: BP 137/56
[2020-04-13] MEDS: LOSARTAN POTASSIUM 50 MG TABLET PO SCH ×2 (08:25→20:23)
[2020-04-13] MEDS: SitaGLIPtin PHOSPHATE 50 MG TABLET PO SCH (08:25)
[2020-04-13] MEDS: FLUoxetine HCL 10 MG CAPSULE PO SCH (08:25)
[2020-04-13] MEDS: CALCIUM CARBONATE 648 MG TABLET PO SCH (08:25)
[2020-04-13] MEDS: MAGNESIUM OXIDE 400 MG TABLET PO SCH ×2 (08:25→20:22)
[2020-04-13] MEDS: ASPIRIN 81 MG CHEWABLE TABLET PO SCH (08:25)
[2020-04-13] MEDS: CLOPIDOGREL BISULFATE 75 MG TABLET PO SCH (08:25)
[2020-04-13] MEDS: PANTOPRAZOLE SODIUM 40 MG DR TABLET PO SCH ×2 (08:25→20:22)
[2020-04-13] MEDS: CHOLECALCIFEROL (VIT D3) 400 UNITS [10 MCG] TABLET PO SCH (08:26)
[2020-04-13] MEDS: ENOXAPARIN SODIUM 40 MG/0.4 ML PF SYRINGE SQ SCH (08:26)
[2020-04-13] MEDS: INSULIN LISPRO 100 UNITS/ML SQ PRN ×3 (08:57→20:27)
[2020-04-13 12:25] LABS: GLUCOMETER DEV NAME(LOC) 2WR.2B; GLUCOSE,POINT OF CARE 138 MG/DL (70-110)
[2020-04-13 17:00] VITALS: BP 141/64
[2020-04-13 18:23] LABS: GLUCOMETER DEV NAME(LOC) 2WR.2B; GLUCOSE,POINT OF CARE 124 MG/DL (70-110)
[2020-04-13] MEDS: DOCUSATE SODIUM 283 MG/5 ML MINI-ENEMA PR SCH (18:50)
[2020-04-13] MEDS: ATORVASTATIN CALCIUM 40 MG TABLET PO SCH (20:22)
[2020-04-13] MEDS: DOCUSATE SODIUM 100 MG CAPSULE PO PRN ×2 (20:22→20:32)
[2020-04-13 20:23] VITALS: BP 160/66
[2020-04-13] MEDS: MELATONIN 5 MG TABLET PO PRN (20:23)
[2020-04-13] MEDS: INSULIN GLARGINE,HUM.REC.ANLOG 100 UNITS/ML SQ SCH (20:27)
[2020-04-13 21:51] LABS: GLUCOMETER DEV NAME(LOC) 2WR.2B; GLUCOSE,POINT OF CARE 146 MG/DL (70-110)
[2020-04-14] VITALS: BP 148/57
[2020-04-14] MEDS: LEVOTHYROXINE SODIUM 50 MCG TABLET PO SCH (05:55)
[2020-04-14 06:26] LABS: GLUCOMETER DEV NAME(LOC) 2WR.2B; GLUCOSE,POINT OF CARE 117 MG/DL (70-110)
[2020-04-14 08:00] VITALS: BP 144/56
[2020-04-14] MEDS: ASPIRIN 81 MG CHEWABLE TABLET PO SCH (08:38)
[2020-04-14] MEDS: CALCIUM CARBONATE 648 MG TABLET PO SCH (08:38)
[2020-04-14] MEDS: FLUoxetine HCL 10 MG CAPSULE PO SCH (08:39)
[2020-04-14] MEDS: MAGNESIUM OXIDE 400 MG TABLET PO SCH ×2 (08:39→20:19)
[2020-04-14] MEDS: LOSARTAN POTASSIUM 50 MG TABLET PO SCH ×2 (08:39→20:19)
[2020-04-14] MEDS: SitaGLIPtin PHOSPHATE 50 MG TABLET PO SCH (08:39)
[2020-04-14] MEDS: CLOPIDOGREL BISULFATE 75 MG TABLET PO SCH (08:39)
[2020-04-14] MEDS: PANTOPRAZOLE SODIUM 40 MG DR TABLET PO SCH ×2 (08:39→20:19)
[2020-04-14] MEDS: CHOLECALCIFEROL (VIT D3) 400 UNITS [10 MCG] TABLET PO SCH (08:40)
[2020-04-14] MEDS: ENOXAPARIN SODIUM 40 MG/0.4 ML PF SYRINGE SQ SCH (08:40)
[2020-04-14] MEDS: INSULIN LISPRO 100 UNITS/ML SQ PRN ×3 (08:45→20:35)
[2020-04-14 16:08] VITALS: BP 127/57
[2020-04-14 16:36] LABS: GLUCOMETER DEV NAME(LOC) 2WR.1C; GLUCOSE,POINT OF CARE 222 MG/DL (70-110)
[2020-04-14 18:21] LABS: GLUCOMETER DEV NAME(LOC) 2WR.2B; GLUCOSE,POINT OF CARE 125 MG/DL (70-110)
[2020-04-14] MEDS: DOCUSATE SODIUM 283 MG/5 ML MINI-ENEMA PR SCH (18:48)
[2020-04-14] MEDS: ATORVASTATIN CALCIUM 40 MG TABLET PO SCH (20:19)
[2020-04-14] MEDS: INSULIN GLARGINE,HUM.REC.ANLOG 100 UNITS/ML SQ SCH (20:34)
[2020-04-14 21:23] LABS: GLUCOMETER DEV NAME(LOC) 2WR.2B; GLUCOSE,POINT OF CARE 161 MG/DL (70-110)
[2020-04-14] MEDS: MELATONIN 5 MG TABLET PO PRN (21:37)
[2020-04-14 23:56] VITALS: BP 132/72
[2020-04-15] MEDS: LEVOTHYROXINE SODIUM 50 MCG TABLET PO SCH (05:21)
[2020-04-15 06:41] LABS: GLUCOMETER DEV NAME(LOC) 2WR.1C; GLUCOSE,POINT OF CARE 109 MG/DL (70-110)
[2020-04-15 07:10] VITALS: BP 150/83
[2020-04-15] MEDS: CHOLECALCIFEROL (VIT D3) 400 UNITS [10 MCG] TABLET PO SCH (08:58)
[2020-04-15] MEDS: LOSARTAN POTASSIUM 50 MG TABLET PO SCH ×2 (08:58→20:45)
[2020-04-15] MEDS: PANTOPRAZOLE SODIUM 40 MG DR TABLET PO SCH ×2 (08:58→20:44)
[2020-04-15] MEDS: CALCIUM CARBONATE 648 MG TABLET PO SCH (08:58)
[2020-04-15] MEDS: ASPIRIN 81 MG CHEWABLE TABLET PO SCH (08:58)
[2020-04-15] MEDS: FLUoxetine HCL 10 MG CAPSULE PO SCH (08:58)
[2020-04-15] MEDS: ENOXAPARIN SODIUM 40 MG/0.4 ML PF SYRINGE SQ SCH (08:59)
[2020-04-15] MEDS: MAGNESIUM OXIDE 400 MG TABLET PO SCH ×2 (08:59→20:44)
[2020-04-15] MEDS: SitaGLIPtin PHOSPHATE 50 MG TABLET PO SCH (08:59)
[2020-04-15] MEDS: CLOPIDOGREL BISULFATE 75 MG TABLET PO SCH (08:59)
[2020-04-15 14:30] VITALS: BP 131/59
[2020-04-15] MEDS: INSULIN LISPRO 100 UNITS/ML SQ PRN ×2 (17:45→21:19)
[2020-04-15 18:35] LABS: GLUCOMETER DEV NAME(LOC) 2WR.2B; GLUCOSE,POINT OF CARE 151 MG/DL (70-110)
[2020-04-15] MEDS: DOCUSATE SODIUM 283 MG/5 ML MINI-ENEMA PR SCH (19:03)
[2020-04-15 20:35] VITALS: BP 150/65
[2020-04-15] MEDS: ATORVASTATIN CALCIUM 40 MG TABLET PO SCH (20:45)
[2020-04-15] MEDS: INSULIN GLARGINE,HUM.REC.ANLOG 100 UNITS/ML SQ SCH (21:18)
[2020-04-15 21:19] LABS: GLUCOMETER DEV NAME(LOC) 2WR.2B; GLUCOSE,POINT OF CARE 143 MG/DL (70-110)
[2020-04-16 02:07] VITALS: BP 133/51
[2020-04-16 05:26] LABS: GLUCOMETER DEV NAME(LOC) 2WR.1C; GLUCOSE,POINT OF CARE 133 MG/DL (70-110)
[2020-04-16] MEDS: LEVOTHYROXINE SODIUM 50 MCG TABLET PO SCH (06:18)
[2020-04-16 06:30] LABS: GLUCOMETER DEV NAME(LOC) 2WR.1C; GLUCOSE,POINT OF CARE 119 MG/DL (70-110)
[2020-04-16 07:54] VITALS: BP 163/77
[2020-04-16] MEDS: SitaGLIPtin PHOSPHATE 50 MG TABLET PO SCH (08:41)
[2020-04-16] MEDS: LOSARTAN POTASSIUM 50 MG TABLET PO SCH ×2 (08:41→21:31)
[2020-04-16] MEDS: MAGNESIUM OXIDE 400 MG TABLET PO SCH ×2 (08:41→21:31)
[2020-04-16] MEDS: FLUoxetine HCL 10 MG CAPSULE PO SCH (08:41)
[2020-04-16] MEDS: PANTOPRAZOLE SODIUM 40 MG DR TABLET PO SCH ×2 (08:42→21:31)
[2020-04-16] MEDS: CALCIUM CARBONATE 648 MG TABLET PO SCH (08:42)
[2020-04-16] MEDS: CLOPIDOGREL BISULFATE 75 MG TABLET PO SCH (08:42)
[2020-04-16] MEDS: ENOXAPARIN SODIUM 40 MG/0.4 ML PF SYRINGE SQ SCH (08:42)
[2020-04-16] MEDS: CHOLECALCIFEROL (VIT D3) 400 UNITS [10 MCG] TABLET PO SCH (08:42)
[2020-04-16] MEDS: ASPIRIN 81 MG CHEWABLE TABLET PO SCH (08:42)
[2020-04-16 09:27] VITALS: BP 150/57
[2020-04-16] MEDS: INSULIN LISPRO 100 UNITS/ML SQ PRN ×2 (11:50→21:35)
[2020-04-16 15:37] LABS: GLUCOMETER DEV NAME(LOC) 2WR.1C; GLUCOSE,POINT OF CARE 134 MG/DL (70-110)
[2020-04-16 16:31] VITALS: BP 114/56
[2020-04-16 18:02] LABS: GLUCOMETER DEV NAME(LOC) 2WR.2B; GLUCOSE,POINT OF CARE 113 MG/DL (70-110)
[2020-04-16] MEDS: DOCUSATE SODIUM 283 MG/5 ML MINI-ENEMA PR SCH (18:06)
[2020-04-16 21:31] VITALS: BP 136/64
[2020-04-16] MEDS: ATORVASTATIN CALCIUM 40 MG TABLET PO SCH (21:31)
[2020-04-16] MEDS: INSULIN GLARGINE,HUM.REC.ANLOG 100 UNITS/ML SQ SCH (21:34)
[2020-04-16 21:57] LABS: GLUCOMETER DEV NAME(LOC) 2WR.1C; GLUCOSE,POINT OF CARE 156 MG/DL (70-110)
[2020-04-17 05:48] LABS: GLUCOMETER DEV NAME(LOC) 2WR.2B; GLUCOSE,POINT OF CARE 125 MG/DL (70-110)
[2020-04-17] MEDS: LEVOTHYROXINE SODIUM 50 MCG TABLET PO SCH (06:03)
[2020-04-17 07:20] VITALS: BP 165/61
[2020-04-17] MEDS: ENOXAPARIN SODIUM 40 MG/0.4 ML PF SYRINGE SQ SCH (08:33)
[2020-04-17] MEDS: LOSARTAN POTASSIUM 50 MG TABLET PO SCH ×2 (08:33→21:12)
[2020-04-17] MEDS: CHOLECALCIFEROL (VIT D3) 400 UNITS [10 MCG] TABLET PO SCH (08:33)
[2020-04-17] MEDS: SitaGLIPtin PHOSPHATE 50 MG TABLET PO SCH (08:33)
[2020-04-17] MEDS: MAGNESIUM OXIDE 400 MG TABLET PO SCH ×2 (08:33→20:45)
[2020-04-17] MEDS: PANTOPRAZOLE SODIUM 40 MG DR TABLET PO SCH ×2 (08:33→20:45)
[2020-04-17] MEDS: CLOPIDOGREL BISULFATE 75 MG TABLET PO SCH (08:33)
[2020-04-17] MEDS: ASPIRIN 81 MG CHEWABLE TABLET PO SCH (08:33)
[2020-04-17] MEDS: CALCIUM CARBONATE 648 MG TABLET PO SCH (08:33)
[2020-04-17] MEDS: FLUoxetine HCL 10 MG CAPSULE PO SCH (08:33)
[2020-04-17 11:56] LABS: GLUCOMETER DEV NAME(LOC) 2WR.2B; GLUCOSE,POINT OF CARE 132 MG/DL (70-110)
[2020-04-17 16:23] VITALS: BP 132/65
[2020-04-17] MEDS: INSULIN LISPRO 100 UNITS/ML SQ PRN ×2 (17:23→20:41)
[2020-04-17 18:06] LABS: GLUCOMETER DEV NAME(LOC) 2WR.2B; GLUCOSE,POINT OF CARE 153 MG/DL (70-110)
[2020-04-17] MEDS: DOCUSATE SODIUM 283 MG/5 ML MINI-ENEMA PR SCH (18:22)
[2020-04-17] MEDS: INSULIN GLARGINE,HUM.REC.ANLOG 100 UNITS/ML SQ SCH (20:43)
[2020-04-17] MEDS: ATORVASTATIN CALCIUM 40 MG TABLET PO SCH (20:45)
[2020-04-17 21:07] LABS: GLUCOMETER DEV NAME(LOC) 2WR.1C; GLUCOSE,POINT OF CARE 166 MG/DL (70-110)
[2020-04-18 02:30] VITALS: BP 140/58
[2020-04-18 05:37] LABS: GLUCOMETER DEV NAME(LOC) 2WR.1C; GLUCOSE,POINT OF CARE 107 MG/DL (70-110)
[2020-04-18] MEDS: LEVOTHYROXINE SODIUM 50 MCG TABLET PO SCH (05:57)
[2020-04-18 09:01] VITALS: BP 142/70
[2020-04-18] MEDS: ASPIRIN 81 MG CHEWABLE TABLET PO SCH (09:16)
[2020-04-18] MEDS: CHOLECALCIFEROL (VIT D3) 400 UNITS [10 MCG] TABLET PO SCH (09:16)
[2020-04-18] MEDS: MAGNESIUM OXIDE 400 MG TABLET PO SCH ×2 (09:16→20:42)
[2020-04-18] MEDS: CALCIUM CARBONATE 648 MG TABLET PO SCH (09:16)
[2020-04-18] MEDS: LOSARTAN POTASSIUM 50 MG TABLET PO SCH ×2 (09:16→20:42)
[2020-04-18] MEDS: FLUoxetine HCL 10 MG CAPSULE PO SCH (09:16)
[2020-04-18] MEDS: PANTOPRAZOLE SODIUM 40 MG DR TABLET PO SCH ×2 (09:16→20:54)
[2020-04-18] MEDS: CLOPIDOGREL BISULFATE 75 MG TABLET PO SCH (09:16)
[2020-04-18] MEDS: SitaGLIPtin PHOSPHATE 50 MG TABLET PO SCH (09:16)
[2020-04-18] MEDS: ENOXAPARIN SODIUM 40 MG/0.4 ML PF SYRINGE SQ SCH (10:04)
[2020-04-18] MEDS: INSULIN LISPRO 100 UNITS/ML SQ PRN ×3 (12:55→20:45)
[2020-04-18 16:12] VITALS: BP 128/53
[2020-04-18] MEDS: DOCUSATE SODIUM 283 MG/5 ML MINI-ENEMA PR SCH (17:02)
[2020-04-18 20:39] VITALS: BP 146/60
[2020-04-18] MEDS: ATORVASTATIN CALCIUM 40 MG TABLET PO SCH (20:42)
[2020-04-18] MEDS: DOCUSATE SODIUM 100 MG CAPSULE PO PRN (20:42)
[2020-04-18] MEDS: MELATONIN 5 MG TABLET PO PRN (20:42)
[2020-04-18] MEDS: INSULIN GLARGINE,HUM.REC.ANLOG 100 UNITS/ML SQ SCH (20:44)
[2020-04-19 00:18] VITALS: BP 142/58
[2020-04-19 05:20] LABS: GLUCOMETER DEV NAME(LOC) 2WR.1C; GLUCOSE,POINT OF CARE 184 MG/DL (70-110)
[2020-04-19 05:20] LABS: GLUCOMETER DEV NAME(LOC) 2WR.1C; GLUCOSE,POINT OF CARE 177 MG/DL (70-110)
[2020-04-19] MEDS: LEVOTHYROXINE SODIUM 50 MCG TABLET PO SCH (05:49)
[2020-04-19 06:41] LABS: GLUCOMETER DEV NAME(LOC) 2WR.1C; GLUCOSE,POINT OF CARE 124 MG/DL (70-110)
[2020-04-19 09:10] VITALS: BP 146/63
[2020-04-19] MEDS: PANTOPRAZOLE SODIUM 40 MG DR TABLET PO SCH ×2 (09:25→20:37)
[2020-04-19] MEDS: LOSARTAN POTASSIUM 50 MG TABLET PO SCH ×2 (09:25→20:37)
[2020-04-19] MEDS: MAGNESIUM OXIDE 400 MG TABLET PO SCH ×2 (09:25→20:37)
[2020-04-19] MEDS: FLUoxetine HCL 10 MG CAPSULE PO SCH (09:25)
[2020-04-19] MEDS: CALCIUM CARBONATE 648 MG TABLET PO SCH (09:25)
[2020-04-19] MEDS: ASPIRIN 81 MG CHEWABLE TABLET PO SCH (09:25)
[2020-04-19] MEDS: SitaGLIPtin PHOSPHATE 50 MG TABLET PO SCH (09:25)
[2020-04-19] MEDS: CLOPIDOGREL BISULFATE 75 MG TABLET PO SCH (09:25)
[2020-04-19] MEDS: CHOLECALCIFEROL (VIT D3) 400 UNITS [10 MCG] TABLET PO SCH (09:25)
[2020-04-19] MEDS: ENOXAPARIN SODIUM 40 MG/0.4 ML PF SYRINGE SQ SCH (09:26)
[2020-04-19] MEDS: INSULIN LISPRO 100 UNITS/ML SQ PRN ×3 (12:55→20:40)
[2020-04-19 13:38] LABS: GLUCOMETER DEV NAME(LOC) 2WR.2B; GLUCOSE,POINT OF CARE 143 MG/DL (70-110)
[2020-04-19 15:39] VITALS: BP 111/64
[2020-04-19 15:42] VITALS: BP 134/64
[2020-04-19] MEDS: DOCUSATE SODIUM 283 MG/5 ML MINI-ENEMA PR SCH (18:02)
[2020-04-19 18:09] LABS: GLUCOMETER DEV NAME(LOC) 2WR.1C; GLUCOSE,POINT OF CARE 155 MG/DL (70-110)
[2020-04-19 19:56] VITALS: BP 147/62
[2020-04-19] MEDS: MELATONIN 5 MG TABLET PO PRN (20:37)
[2020-04-19] MEDS: ATORVASTATIN CALCIUM 40 MG TABLET PO SCH (20:37)
[2020-04-19] MEDS: DOCUSATE SODIUM 100 MG CAPSULE PO PRN (20:37)
[2020-04-19] MEDS: INSULIN GLARGINE,HUM.REC.ANLOG 100 UNITS/ML SQ SCH (20:41)
[2020-04-19 21:52] LABS: GLUCOMETER DEV NAME(LOC) 2WR.2B; GLUCOSE,POINT OF CARE 144 MG/DL (70-110)
[2020-04-20 02:15] VITALS: BP 159/63
[2020-04-20] MEDS: LEVOTHYROXINE SODIUM 50 MCG TABLET PO SCH (05:57)
[2020-04-20 06:10] LABS: GLUCOMETER DEV NAME(LOC) 2WR.2B; GLUCOSE,POINT OF CARE 116 MG/DL (70-110)
[2020-04-20] MEDS: PANTOPRAZOLE SODIUM 40 MG DR TABLET PO SCH ×2 (08:15→20:43)
[2020-04-20] MEDS: ENOXAPARIN SODIUM 40 MG/0.4 ML PF SYRINGE SQ SCH (08:15)
[2020-04-20] MEDS: ASPIRIN 81 MG CHEWABLE TABLET PO SCH (08:15)
[2020-04-20] MEDS: FLUoxetine HCL 10 MG CAPSULE PO SCH (08:15)
[2020-04-20] MEDS: SitaGLIPtin PHOSPHATE 50 MG TABLET PO SCH (08:16)
[2020-04-20] MEDS: LOSARTAN POTASSIUM 50 MG TABLET PO SCH ×2 (08:16→20:45)
[2020-04-20] MEDS: CLOPIDOGREL BISULFATE 75 MG TABLET PO SCH (08:16)
[2020-04-20] MEDS: CHOLECALCIFEROL (VIT D3) 400 UNITS [10 MCG] TABLET PO SCH (08:16)
[2020-04-20] MEDS: CALCIUM CARBONATE 648 MG TABLET PO SCH (08:16)
[2020-04-20] MEDS: MAGNESIUM OXIDE 400 MG TABLET PO SCH ×2 (08:16→20:43)
[2020-04-20 09:01] VITALS: BP 135/70
[2020-04-20 16:11] VITALS: BP 138/53
[2020-04-20] MEDS: INSULIN LISPRO 100 UNITS/ML SQ PRN ×2 (17:22→20:49)
[2020-04-20] MEDS: DOCUSATE SODIUM 283 MG/5 ML MINI-ENEMA PR SCH (17:37)
[2020-04-20 18:58] LABS: GLUCOMETER DEV NAME(LOC) 2WR.1C; GLUCOSE,POINT OF CARE 154 MG/DL (70-110)
[2020-04-20] MEDS ORDERED: DOCU-275 PO (20:06)
[2020-04-20] MEDS ORDERED: INSU100V39 SQ (20:13)
[2020-04-20] MEDS ORDERED: PANT-31 PO (20:29)
[2020-04-20] MEDS ORDERED: CALC650T PO (20:29)
[2020-04-20] MEDS ORDERED: CHOL400T56 PO (20:29)
[2020-04-20] MEDS ORDERED: MAGN400T7 PO (20:29)
[2020-04-20] MEDS ORDERED: LOSA50TA37 PO (20:30)
[2020-04-20 20:41] VITALS: BP_SYST 139; BP_SYST 148; BP_DIAS 54; BP_DIAS 73
[2020-04-20] MEDS: ATORVASTATIN CALCIUM 40 MG TABLET PO SCH (20:44)
[2020-04-20] MEDS: MELATONIN 5 MG TABLET PO PRN (20:44)
[2020-04-20] MEDS: DOCUSATE SODIUM 100 MG CAPSULE PO PRN (20:44)
[2020-04-20] MEDS: INSULIN GLARGINE,HUM.REC.ANLOG 100 UNITS/ML SQ SCH (20:47)
[2020-04-20 23:42] LABS: GLUCOMETER DEV NAME(LOC) 2WR.2B; GLUCOSE,POINT OF CARE 167 MG/DL (70-110)
[2020-04-21] VITALS: BP 150/81
[2020-04-21] MEDS: LEVOTHYROXINE SODIUM 50 MCG TABLET PO SCH (05:56)
[2020-04-21 06:18] LABS: GLUCOMETER DEV NAME(LOC) 2WR.1C; GLUCOSE,POINT OF CARE 125 MG/DL (70-110)
[2020-04-21] MEDS: SitaGLIPtin PHOSPHATE 50 MG TABLET PO SCH (08:49)
[2020-04-21] MEDS: FLUoxetine HCL 10 MG CAPSULE PO SCH (08:49)
[2020-04-21] MEDS: MAGNESIUM OXIDE 400 MG TABLET PO SCH ×2 (08:49→20:44)
[2020-04-21] MEDS: CLOPIDOGREL BISULFATE 75 MG TABLET PO SCH (08:49)
[2020-04-21] MEDS: ASPIRIN 81 MG CHEWABLE TABLET PO SCH (08:49)
[2020-04-21] MEDS: PANTOPRAZOLE SODIUM 40 MG DR TABLET PO SCH ×2 (08:49→20:43)
[2020-04-21] MEDS: CHOLECALCIFEROL (VIT D3) 400 UNITS [10 MCG] TABLET PO SCH (08:49)
[2020-04-21] MEDS: LOSARTAN POTASSIUM 50 MG TABLET PO SCH ×2 (08:49→20:44)
[2020-04-21] MEDS: ENOXAPARIN SODIUM 40 MG/0.4 ML PF SYRINGE SQ SCH (08:49)
[2020-04-21] MEDS: CALCIUM CARBONATE 648 MG TABLET PO SCH (08:49)
[2020-04-21 09:31] VITALS: BP 175/61
[2020-04-21 13:13] LABS: GLUCOMETER DEV NAME(LOC) 2WR.1C; GLUCOSE,POINT OF CARE 120 MG/DL (70-110)
[2020-04-21 16:35] VITALS: BP 122/50
[2020-04-21] MEDS: INSULIN LISPRO 100 UNITS/ML SQ PRN ×2 (17:35→20:46)
[2020-04-21] MEDS: DOCUSATE SODIUM 283 MG/5 ML MINI-ENEMA PR SCH (18:31)
[2020-04-21 18:43] LABS: GLUCOMETER DEV NAME(LOC) 2WR.2B; GLUCOSE,POINT OF CARE 144 MG/DL (70-110)
[2020-04-21] MEDS: ATORVASTATIN CALCIUM 40 MG TABLET PO SCH (20:43)
[2020-04-21 20:44] VITALS: BP 115/55
[2020-04-21] MEDS: DOCUSATE SODIUM 100 MG CAPSULE PO PRN (20:44)
[2020-04-21] MEDS: INSULIN GLARGINE,HUM.REC.ANLOG 100 UNITS/ML SQ SCH (20:45)
[2020-04-21 21:55] LABS: GLUCOMETER DEV NAME(LOC) 2WR.1C; GLUCOSE,POINT OF CARE 141 MG/DL (70-110)
[2020-04-22 02:30] VITALS: BP 137/50
[2020-04-22] MEDS: LEVOTHYROXINE SODIUM 50 MCG TABLET PO SCH (06:18)
[2020-04-22 06:33] LABS: GLUCOMETER DEV NAME(LOC) 2WR.1C; GLUCOSE,POINT OF CARE 121 MG/DL (70-110)
[2020-04-22 07:32] VITALS: BP 183/73
[2020-04-22] MEDS: MAGNESIUM OXIDE 400 MG TABLET PO SCH (08:21)
[2020-04-22] MEDS: ENOXAPARIN SODIUM 40 MG/0.4 ML PF SYRINGE SQ SCH (08:22)
[2020-04-22] MEDS: PANTOPRAZOLE SODIUM 40 MG DR TABLET PO SCH (08:22)
[2020-04-22] MEDS: FLUoxetine HCL 10 MG CAPSULE PO SCH (08:22)
[2020-04-22] MEDS: SitaGLIPtin PHOSPHATE 50 MG TABLET PO SCH (08:22)
[2020-04-22] MEDS: CLOPIDOGREL BISULFATE 75 MG TABLET PO SCH (08:22)
[2020-04-22] MEDS: LOSARTAN POTASSIUM 50 MG TABLET PO SCH (08:22)
[2020-04-22] MEDS: CHOLECALCIFEROL (VIT D3) 400 UNITS [10 MCG] TABLET PO SCH (08:22)
[2020-04-22] MEDS: CALCIUM CARBONATE 648 MG TABLET PO SCH (08:22)
[2020-04-22] MEDS: ASPIRIN 81 MG CHEWABLE TABLET PO SCH (08:22)
[2020-04-22 09:24] VITALS: BP 128/63
== END 2020-04-22 11:55 | disposition home health service (06) | DRG 56 ==
LOC: 2WR 16:52
PROVIDERS: ADMIT Physical Medicine & Rehabilitation; ATTEND Physical Medicine & Rehabilitation
DX: I69.351 Hemiplegia and hemiparesis following cerebral infarction affecting right dominant side (principal); I63.9 Cerebral infarction, unspecified; E43 Unspecified severe protein-calorie malnutrition; I69.354 Hemiplegia and hemiparesis following cerebral infarction affecting left non-dominant side; R13.10 Dysphagia, unspecified; R47.1 Dysarthria and anarthria; E11.65 Type 2 diabetes mellitus with hyperglycemia; I10 Essential (primary) hypertension; E66.9 Obesity, unspecified; N18.9 Chronic kidney disease, unspecified; E11.22 Type 2 diabetes mellitus with diabetic chronic kidney disease; D50.9 Iron deficiency anemia, unspecified; R74.01 Elevation of levels of liver transaminase levels
CPT/HCPCS: 74230; 83735; 87081; 87426; 92507; 92508; 92521; 92526; 92610; 92611; 93970; 93971; 97110; 97112; 97116; 97140; 97150; 97163; 97166; 97530; 97535; 99366; A9575; J1650; J1815; J2250; J3010; J7030